=== PATIENT | female | born 1985 | race Caucasian/White ===

== ENCOUNTER 2022-08-28 01:37 | Emergency (ER) | payer OTHER ==
[~2022-08-28] VITALS: Ht 170.2 cm; Wt 59.0 kg
[2022-08-28] MEDS ORDERED: NAPROXEN 500 MG TABLET ONE (01:44)
[2022-08-28] MEDS ORDERED: NAPROXEN 500 MG TABLET PO ONE (01:45)
--- NOTE | 2022-08-28 02:00 | NUR ---
X-ray tech in room with patient.
[2022-08-28] MEDS ORDERED: IV NORMAL SALINE 1000 ML BAG IV ONE (02:15)
[2022-08-28 06:36] VITALS: BP 129/87
--- NOTE | 2022-08-28 06:36 | NUR ---
Patient discharged to home in stable condition. Written and verbal after care instructions given. Patient verbalizes understanding of instructions. Stressed follow up or return to ER for worsening s/s. Patient walked out with steady gait.
== END 2022-08-28 06:37 | disposition home or self-care (01) ==
LOC: ER 01:44
DX: M25.571 Pain in right ankle and joints of right foot (principal); F10.129 Alcohol abuse with intoxication, unspecified; Y90.9 Presence of alcohol in blood, level not specified
CPT/HCPCS: 73610; A4663; J7040

== ENCOUNTER 2022-09-11 05:28 | Emergency (ER) | payer OTHER ==
[~2022-09-11] VITALS: Ht 170.2 cm; Wt 59.0 kg
[2022-09-11 07:13] LABS: HEMATOCRIT 37.9 % (31.2-41.9); MEAN CORPUSCULAR HEMOGLOBIN 32.8 uug (24.7-32.8); MEAN CORPUSCULAR VOLUME 99.2 fL (75.5-95.3); PLATELET COUNT (AUTO) 161 K/uL (179-408)
--- NOTE | 2022-09-11 07:15 | NUR ---
PT IS IN ROOM #2B. DR CARNES EVALUATED THE PT.
[2022-09-11 07:27] LABS: CARBON DIOXIDE 28 mmol/L (21-32); CHLORIDE 103 mmol/L (98-107); CREATININE 0.5 mg/dL (0.6-1.3); GLUCOSE 90 mg/dL (74-106); POTASSIUM 3.8 mmol/L (3.5-5.1); UREA NITROGEN, BLOOD 9 mg/dL (7-18)
[2022-09-11 07:41] LABS: ALANINE AMINOTRANSFERASE 152 U/L (14-59); ALKALINE PHOSPHATASE 98 U/L (50-136); ASPARTATE AMINOTRANSFERASE 176 U/L (15-37); BILIRUBIN,DIRECT 0.1 mg/dL (0.0-0.2); BILIRUBIN,TOTAL 0.3 mg/dL (0.2-1.0); TOTAL PROTEIN, SERUM 8.4 g/dL (6.4-8.2)
[2022-09-11 09:40] LABS: *BILIRUBIN,URIN NEGATIVE (NEGATIVE); *BLOOD, URINE 1+ (NEGATIVE); *CLARITY,URINE CLEAR (CLEAR); *COLOR,URINE YELLOW (YELLOW); *KETONES,URINE NEGATIVE (NEGATIVE); *UROBILINOGEN,URINE 0.2 E.U./dl (NORMAL); LEUKOCYTE ESTERASE ,URINE NEGATIVE (NEGATIVE); NITRITE, URINE POSITIVE (NEGATIVE); UGLUCOSE NEGATIVE (NEGATIVE)
[2022-09-11 09:49] LABS: *URINE HCG, QUAL NEGATIVE (NEGATIVE)
[2022-09-11] MEDS ORDERED: CEPH500C2 PO (10:34)
--- NOTE | 2022-09-11 10:40 | NUR ---
PT WAS D/C'd TO HOME. D/C INSTRUCTIONS GIVEN TO THE PT BY DR CARNES.
[2022-09-11 10:44] VITALS: BP 132/74
[2022-09-11 10:55] LABS: BACTERIA,URINE MODERATE /HPF (NONE SEEN); RBC,URINE 0-3 /HPF (0-3); SQUAMOUS EPITHELIAL CELL,UR FEW /HPF (NONE SEEN); WBC,URINE NONE SEEN /HPF (0-3); YEAST,URINE NONE SEEN /HPF (NONE SEEN)
[2022-09-11 10:56] LABS: CALCIUM CARBONATE CRYSTALS,UR NONE SEEN /HPF (NONE SEEN); CALCIUM OXALATE CRYSTALS,UR NONE SEEN /HPF (NONE SEEN); CALCIUM PHOSPHATE CRYSTALS,UR NONE SEEN /HPF (NONE SEEN); COARSE GRANULAR CASTS,URINE NONE SEEN /LPF; CYSTINE CRYSTALS,URINE NONE SEEN /HPF (NONE SEEN); FATTY CASTS,URINE NONE SEEN /LPF (NONE SEEN); MUCUS,URINE NONE SEEN /LPF (0-FEW); RED BLOOD CELL CASTS,URINE NONE SEEN /LPF (NONE SEEN); SPERM,URINE NONE SEEN /HPF (NONE SEEN); TRICHOMONAS,URINE NONE SEEN /HPF (NONE SEEN); TRIPLE PHOSPHATE CRYSTAL,UR NONE SEEN /HPF (NONE SEEN); TYROSINE CRYSTAL,URINE NONE SEEN /HPF (NONE SEEN); URIC ACID CRYSTALS,URINE NONE SEEN /HPF (NONE SEEN); URINE AMORPHOUS PHOSPHATES NONE SEEN /HPF; URINE AMORPHOUS URATE NONE SEEN /HPF; WAXY CASTS,URINE NONE SEEN /LPF (NONE SEEN)
== END 2022-09-11 11:23 | disposition home or self-care (01) ==
LOC: ER 05:35
DX: R60.0 Localized edema (principal); R74.01 Elevation of levels of liver transaminase levels; N39.0 Urinary tract infection, site not specified; R07.89 Other chest pain; Z79.899 Other long term (current) drug therapy
CPT/HCPCS: 36415; 71045; 84703; 85025; 93005; A4663

== ENCOUNTER 2023-03-10 01:52 | Emergency (ER) | payer SELFPAY ==
[~2023-03-10] VITALS: Ht 177.8 cm; Wt 59.0 kg
[2023-03-10 01:45] VITALS: O2SAT 98
[~2023-03-10 01:52] MED LIST: ALBUTEROL SULFATE 2.5 MG/3 ML NEBU NEB ONE; ALBUTEROL SULFATE 2.5 MG/3 ML NEBU ONE; CEPH500C2 PO; IPRATROPIUM BROMIDE 0.5 MG/2.5 ML NEBU NEB ONE; IPRATROPIUM BROMIDE 0.5 MG/2.5 ML NEBU ONE
[2023-03-10] MEDS ORDERED: ALBU18HF2 INH (03:01)
[2023-03-10] MEDS ORDERED: PROM5SYR PO (03:01)
== END 2023-03-10 03:18 | disposition home or self-care (01) ==
LOC: ER 01:54
DX: J20.9 Acute bronchitis, unspecified (principal); F10.129 Alcohol abuse with intoxication, unspecified; Z79.899 Other long term (current) drug therapy; Y90.9 Presence of alcohol in blood, level not specified
CPT/HCPCS: 71045; A4606; A4663; J3590